=== PATIENT | male | born 1995 | race Caucasian/White ===

== ENCOUNTER 2022-12-10 18:01 | Outpatient (CLI) | payer OTHER | END 2022-12-10 18:02 | disposition short-term general hospital (02) | LOC: EMS 18:01 | DX: M25.571 Pain in right ankle and joints of right foot (principal); M79.18 Myalgia, other site; X50.9XXA Other and unspecified overexertion or strenuous movements or postures, initial encounter; Y93.67 Activity, basketball; Y92.830 Public park as the place of occurrence of the external cause | CPT/HCPCS: A0425; A0427 ==